=== PATIENT | female | born 2000 | race African-American/Black ===

== ENCOUNTER 2021-01-23 08:38 | Emergency (ER) | payer SELFPAY ==
--- NOTE | ~2021-01-23 | XR_ITS ---
EXAMINATION: XR chest 2V DATE: 01/23/2021 09:28 INDICATION: Left chest pain. TECHNIQUE: Frontal and lateral views of the chest were obtained. COMPARISON: None. FINDINGS: Sensitivity is decreased by obesity. The chest demonstrates clear lungs without pneumonia, pleural effusion, or pneumothorax. The heart size is normal. Surgical clips in the right upper quadra nt are likely from cholecystectomy. IMPRESSION: 1. No acute cardiopulmonary disease. Reviewed, dictated and finalized at location B.
[2021-01-23 08:54] VITALS: BP 139/81; PULSE 72; RESP 16; TEMP 36.3; O2SAT 100
--- NOTE | 2021-01-23 08:59 | ED.GENADULT ---
HPI - General Adult General Chief complaint: Chest Pain <Tracie Eden PA-C - Last Filed: 01/23/21 10:11> Stated complaint: chest pain <Tracie Eden PA-C - Last Filed: 01/23/21 10:11> Time Seen by Provider: 01/23/21 08:56 <Tracie Eden PA-C - Last Filed: 01/23/21 10:11> Source: patient <Tracie Eden PA-C - Last Filed: 01/23/21 10:11> Mode of arrival: ambulatory <Tracie Eden PA-C - Last Filed: 01/23/21 10:11> Limitations: no limitations <Tracie Eden PA-C - Last Filed: 01/23/21 10:11> History of Present Illness HPI narrative: Patient is here for evaluation of left-sided chest pain that started last evening when she was getting ready to go to work. 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 The pain is a little better this morning, does not seem to be increased or decreased by anything in particular. She denies any recent illness, no history of heart disease in the family or herself, she does have a history of acid reflux. <Tracie Eden PA-C - Last Filed: 01/23/21 10:11> Onset (ago): hour(s) <Tracie Eden PA-C - Last Filed: 01/23/21 10:11> Quality: aching <Tracie Eden PA-C - Last Filed: 01/23/21 10:11> Pain Consistency: intermittent <PAZ Sultana Last Filed: 01/23/21 10:11> Relieving factors: none <PAZ Sultana Last Filed: 01/23/21 10:11> Exacerbating factors: movement <PAZ Sultana Last Filed: 01/23/21 10:11> Associated symptoms: denies other symptoms <Tracie Eden PA-C - Last Filed: 01/23/21 10:11> Treatments prior to arrival: none <Tracie Eden PA-C Last Filed: 01/23/21 10:11> Related Data Allergies/adverse reactions: Allergies Allergy/AdvReac Type Severity Reaction Status Date / Time No Known Allergies Allergy Verified 01/23/21 09:35 <Tracie Eden PA-C Last Filed: 01/23/21 10:11> Review of Systems Review of Systems: All systems reviewed & are unremarkable except as noted in HPI and below <PAZ Sultana Last Filed: 01/23/21 10:11> Exam Const: General: no acute distress and alert <Tracie Eden PA-C Last Filed: 01/23/21 10:11> Orientation/consciousness: patient oriented x3 <Tracie Eden PA-C Last Filed: 01/23/21 10:11> Eyes: Pupils: Equal, round and reactive pupils present <Tracie Eden PA-C Last Filed: 01/23/21 10:11> Chest: Chest palpation & inspection: normal inspection of the chest and tenderness pectoral muscle and costochondral junction (on left) <Tracie Eden PA-C Last Filed: 01/23/21 10:11> Resp: Effort & Inspection: normal respiratory effort <Tracie Eden PA-C Last Filed: 01/23/21 10:11> Auscultation: clear to auscultation bilaterally <Tracie Eden PA-C Last Filed: 01/23/21 10:11> Cardio: Rate: regular rate <PAZ Sultana Last Filed: 01/23/21 10:11> Rhythm: regular rhythm <Tracie Eden PA-C Last Filed: 01/23/21 10:11> GI: GI Palp: Yes Soft to palpation <PAZ Sultana Last Filed: 01/23/21 10:11> Skin: General skin exam: normal color <PAZ Sultana Last Filed: 01/23/21 10:11> Extrem: General: normal to inspection <Tracie Eden PA-C - Last Filed: 01/23/21 10:11> Psych: Mental Status: mental status grossly normal <PAZ Sultana Last Filed: 01/23/21 10:11> Course Course Emergency Course: Pain is reproducible and responsive to NSAIDs. Chest x-ray EKG are both normal. All lab results discussed with patient and her mother. Will discharge with ibuprofen for costochondritis. <Tracie Eden PA-C - Last Filed: 01/23/21 10:11> Vital Signs Vital signs: Vital Signs Temperature 97.3 F L 01/23/21 08:54 Pulse Rate 72 01/23/21 08:54 Respiratory Rate 16 01/23/21 08:54 Blood Pressure 139/81 01/23/21 08:54 Pulse Oximetry 100 01/23/21 08:54 Temperature 97.3 F
[2021-01-23 09:30] VITALS: PULSE 71
[2021-01-23 09:35] LABS: Basophils Percent Auto 0.3 % (0.2-1.2); Eosinophils Absolute Auto 0.1 K/mm3 (0-0.3); Eosinophils Percent Auto 0.5 % (0-4.4); Hematocrit 35.7 % (37.0-47.0); Hemoglobin 11.5 g/dL (12.0-15.0); Immature Granulocyte Absolute 0.04 K/mm3 (0.00-0.031); Immature Granulocyte Percent A 0.3 % (0-0.5); Lymphocytes Absolute Auto 2.73 K/mm3 (0.9-3.2); Lymphocytes Percent Auto 22.4 % (18.3-44.2); Mean Corpuscular HGB Conc 32.2 g/dl (32-36); Mean Corpuscular Hemoglobin 26.6 pg (26-34); Mean Corpuscular Volume 82.6 fl (80-100); Mean Platelet Volume 11.7 fl (7.4-10.4); Monocytes Absolute Auto 0.6 K/mm3 (0.1-0.6); Monocytes Percent Auto 5.1 % (2.6-8.5); Neutrophils Absolute Auto 8.7 K/mm3 (1.3-6.7); Neutrophils Percent Auto 71.4 % (45.5-73.1); Platelet Count Result 311 k/mm3 (150-375); Red Blood Count 4.32 M/mm3 (4.2-5.4); Red Cell Distribution Width 12.8 % (11.5-14.5); White Blood Count 12.2 K/mm3 (4.5-10.0)
[2021-01-23] MEDS: KETOROLAC 30 MG/ML VIAL (*BKC) IV PUSH (09:39)
[2021-01-23 09:45] LABS: Alanine Aminotransferase 13 U/L (4-35); Albumin Level 4.3 g/dL (3.5-5.1); Alkaline Phosphatase 83 U/L (38-126); Anion Gap 10 mmol/L (8-16); Aspartate Amino Transferase 22 U/L (14-36); Bilirubin,Total 0.6 mg/dL (0.2-1.3); Blood Urea Nitrogen 11 mg/dL (7-17); Calcium 9.3 mg/dL (8.4-10.2); Carbon Dioxide 24 mmol/L (22-30); Chloride 102 mmol/L (98-107); Estimated CRCL calculation 181 ml/min; Estimated Glomerular Filt Rate > 60; Glucose 87 mg/dL (65-110); Potassium 3.4 mmol/L (3.4-5.0); Sodium 136 mmol/L (137-145)
[2021-01-23 10:50] VITALS: BP 141/79; PULSE 72; RESP 18; O2SAT 100
--- NOTE | 2021-01-23 15:41 | ECG_ITS ---
Measurements Intervals [place] Rate: 71 P: 11 HI: 144 QRS: 26 QRSD: 101 T: 18 QT: 389 QTc: 425 Interpretive Statements SINUS RHYTHM BASELINE ARTIFACT- I, II, AVR, AVF, V3 NORMAL ECG Electronically Signed On 01-23-2021 15:52:29 CDT by Dale Ortega D.O.
== END 2021-01-23 10:50 | disposition home or self-care (01) ==
PROVIDERS: Physician Assistant; Emergency Provider General Practice
DX: M94.0 Chondrocostal junction syndrome [Tietze] (principal)
CPT/HCPCS: 36415; 71046; 80053; 85025; 93005; 96374; 99284; J1885

== ENCOUNTER 2021-10-05 16:12 | Emergency (ER) | payer OTHER, SELFPAY ==
[2021-10-05 16:24] VITALS: BP 129/71; PULSE 78; RESP 16; O2SAT 100
--- NOTE | 2021-10-05 17:18 | ED.GENADULT ---
HPI - General Adult General Chief complaint: Abdominal Pain Stated complaint: lilliam CASILLAS pain Time Seen by Provider: 10/05/21 16:52 History of Present Illness HPI narrative: Patient is a 21-year-old female with a history of cholecystitis status postcholecystectomy in 2016, who presents to the emergency department for evaluation of an intermittent headache for the past 3 days. Patient states the headache came on gradually while she was at work, and is present over her left neck and left christian region. She states it feels like a pressure . Headache has been intermittent, and is worse when she is at work. She does report a lot of stressors at work recently. She tried 3 aspirin 3 days ago with good relief of her headache. Denies syncope, visual changes, vomiting, fevers. She does have a history of similar headaches, but states these are coming on more frequently. She additionally reports some epigastric discomfort that she describes as a burning sensation, worse after meals. Reports intermittent nausea, but no vomiting. She has been taking a probiotic for the past month, which she states is making her stools harder , but she denies constipation, diarrhea, blood in her stools. Related Data Allergies Allergy/AdvReac Type Severity Reaction Status Date / Time No Known Allergies Allergy Verified 01/23/21 09:35 Review of Systems Review of Systems: Gen: Denies fevers or chills Eyes: Denies eye pain or visual change ENT: Denies congestion Respiratory: Denies shortness of breath or cough CV: Denies chest pain or palpitations GI: Reports abdominal pain and nausea. Denies emesis or diarrhea denies burning, urgency, frequency or hematuria Musculoskeletal: Denies back pain or muscle pain Neuro: Reports headache. Denies numbness, tingling, weakness or focal weakness Skin: Denies rash Except as documented, all other systems reviewed and negative All systems reviewed & are unremarkable except as noted in HPI and below Exam Narrative: APPEARANCE: Well appearing, no pain in distress, well-nourished. Head: normocephalic and atraumatic. EYES: PERRLA/EOMI, conjunctivae clear NOSE: No nasal drainage EARS: External ear normal in appearance THROAT: Oropharynx is clear. Mucous membranes are moist. NECK: Supple. No adenopathy, no masses. RESPIRATORY: Airway patent, respirations nonlabored. Clear to auscultation bilaterally, no rales, rhonchi, wheezing. CARDIOVASCULAR: Regular rate and rhythm without murmurs, rubs, or gallops. ABDOMINAL: Normoactive bowel sounds. Soft, nontender, nondistended. No rebound tenderness or guarding. MUSCULOSKELETAL: Extremities are warm and well-perfused. Moves all extremities well. No edema. NEURO: Normal speech. No focal neurologic deficits. SKIN: Skin is warm and dry. No rashes. PSYCHIATRIC: Normal affect/mood. Course Vital Signs Vital signs: Vital Signs Pulse Rate 78 10/05/21 16:24 Respiratory Rate 16 10/05/21 16:24 Blood Pressure 129/71 10/05/21 16:24 Pulse Oximetry 100 10/05/21 16:24 Pulse Rate 78 10/05/21 16:24 Respiratory Rate 16 10/05/21 16:24 Blood Pressure 129/71 10/05/21 16:24 Pulse Oximetry 100 10/05/21 16:24 Medical Decision Making MDM Narrative Medical decision making narrative: 18-year-old female here for evaluation of a headache and epigastric discomfort. Vital signs stable, no focal abdominal tenderness, no focal neurologic findings. This is likely a tension/stress type headache, as patient states its worse at work, is gradual in onset, and is not associated with any visual changes or neurologic symptoms. She has not tried any analgesia for this, so recommended Excedrin Migraine for her symptoms. Her epigastric discomfort is likely related to GERD, as it is worse after meals and is described as a burning sensation. She has no dysphagia or recent weight changes; states she felt better after Maalox in ED. Patient states she mostly came to the ED for work note, so
[2021-10-05] MEDS: MAG HYDROX/AL HYDROX/SIMETH 30 ML UDC PO (17:30)
== END 2021-10-05 17:41 | disposition home or self-care (01) ==
PROVIDERS: Emergency Provider Emergency Medicine
DX: R51.9 Headache, unspecified (principal); K21.9 Gastro-esophageal reflux disease without esophagitis
CPT/HCPCS: 99283; A9270

== ENCOUNTER 2021-10-15 00:48 | Emergency (ER) | payer OTHER, SELFPAY ==
[2021-10-15 01:13] VITALS: BP 140/89; PULSE 66; RESP 14; TEMP 36.6; O2SAT 100
--- NOTE | 2021-10-15 02:06 | PC.NURSE ---
Pt approached triage desk and states that she is going to go home and make an appointment with her PCP. Pt ambulated out of ED with steady gait, no obvious distress .
== END 2021-10-15 03:22 | disposition left against medical advice (07) ==
LOC: ANHED 02:49
DX: R22.1 Localized swelling, mass and lump, neck (principal)
CPT/HCPCS: 99199

== ENCOUNTER 2021-10-18 08:58 | Emergency (ER) | payer OTHER, SELFPAY ==
--- NOTE | ~2021-10-18 | CT_ITS ---
EXAMINATION: CT abdomen pelvis w con INDICATION: Abdominal pain TECHNIQUE: Computed tomographic images of the abdomen and pelvis were obtained after the administrati on of 100 cc of Omnipaque 300 intravenous contrast. The dose-length product (DLP) was 1486.82 mGy-cm. Automated exposure control and iterative reconstruction technique were employed. COMPARISON: None available FINDINGS: The lung bases are clear. The heart size is normal. The gallbladder is surgically absent. T he liver, spleen, pancreas, and adrenal glands are normal. No pathologically enlarged abdominal or pe lvic lymph nodes are identified. There is no free intraperitoneal gas or evidence of bowel obstructio n. There are umbilical and infraumbilical hernias containing fat. There is mild lumbar spondylosis. IMPRESSION: 1. No CT correlate for the patient's symptoms. 2. Fat-containing umbilical and infraumbilical hernias. Reviewed, dictated and finalized at location A.
[2021-10-18 08:58] VITALS: BP 127/67; PULSE 75; RESP 18; TEMP 36.2; O2SAT 99
--- NOTE | 2021-10-18 09:08 | PC.NURSE ---
PCT attempted blood x 1 . Given urine cup for specimen.
--- NOTE | 2021-10-18 09:19 | ED.ABDPAIN ---
HPI - Abdominal Pain General Chief Complaint: Abdominal Pain Stated Complaint: stomach pain Time Seen by Provider: 10/18/21 09:04 History of Present Illness HPI narrative: Patient states she developed diffuse abdominal pain yesterday accompanied with multiple episodes of nonbloody diarrhea. Patient has a history of GERD, and is 6 years status post cholecystectomy. Patient also reports bilateral hip pain that began this morning. Patient denies any alleviating factors. States pain is worse with palpation and with ambulation. Patient denies fever, nausea or vomiting. Denies dysuria, denies vaginal discharge. Related Data Allergies Allergy/AdvReac Type Severity Reaction Status Date / Time No Known Allergies Allergy Verified 10/18/21 09:19 Review of Systems Review of Systems: CONSTITUTIONAL: Denies fever, chills, or sweats. EYES: Denies visual changes, redness, or discharge. ENT: Denies rhinorrhea, congestion, sore throat, or otalgia. CARDIOVASCULAR: Denies chest pain, palpitations, or edema. RESPIRATORY: Denies cough or dyspnea. GASTROINTESTINAL: Reports abdominal pain, diarrhea GENITOURINARY: Denies dysuria or hematuria. SKIN: Denies rash or itching. MUSCULOSKELETAL: Denies back pain, joint pain, or myalgia. NEUROLOGIC: Denies headache, numbness, dizziness, or weakness. PSYCHIATRIC: Denies anxiety or depression. Exam Narrative: GENERAL: Well-appearing, well-nourished, and in no acute distress. HEAD: Normocephalic, atraumatic. EYES: PERRLA and EOMI. CHEST: Clear to auscultation. No respiratory distress. No wheezes rales or rhonchi HEART: Regular rate and rhythm. No murmur heard. Normal peripheral pulses. ABDOMEN: Soft, nondistended, diffusely tender, normal bowel sounds x4, no guarding, negative heel strike, no psoas or obturator signs EXTREMITIES: Normal range of motion. No edema. SKIN: Warm, dry, no rash. NEURO: No focal deficits. Alert and oriented x3. PSYCH: Normal mood and affect. Course Vital Signs Vital signs: Vital Signs Temperature 36.2 C L 10/18/21 08:58 Pulse Rate 75 10/18/21 08:58 Respiratory Rate 18 10/18/21 08:58 Blood Pressure 127/67 10/18/21 08:58 Pulse Oximetry 99 10/18/21 08:58 Temperature 36.2 C L 10/18/21 08:58 Pulse Rate 75 10/18/21 08:58 Respiratory Rate 18 10/18/21 08:58 Blood Pressure 127/67 10/18/21 08:58 Pulse Oximetry 99 10/18/21 08:58 MDM - Abdominal Pain MDM Narrative Medical decision making narrative: 21-year-old female presents to the emergency room for evaluation of abdominal pain and diarrhea. CBC and CMP were unremarkable. CT scan showed no evidence of acute intra-abdominal abnormality. Patient responded well to a liter of fluid and IM Bentyl. Patient's abdominal pain likely due to the diarrhea. Lab Data Result diagrams: 10/18/21 09:22 10/18/21 09:22 Labs: Lab Results 10/18/21 10/18/21 10/18/21 Range/Units 09: 09:22 09:47 WBC 9.4 (4.5-10.0) K/mm3 RBC 4.34 (4.2-5.4) M/mm3 Hgb 12.0 (12.0-15.0) g/dL Hct 37.6 (37.0-47.0) % MCV 86.6 (80-100) fl MCH 27.6 (26-34) pg MCHC 31.9 L (32-36) g/dl RDW 13.0 (11.5-14.5) % Plt Count 261 (150-375) k/mm3 MPV 11.8 H (7.4-10.4) fl Immature Gran % (Auto) 0.2 (0-0.5) % Neut % (Auto) 63.6 (45.5-73.1) % Lymph % (Auto) 28.6 (18.3-44.2) % [facility] % (Auto) 6.0 (2.6-8.5) % Eos % (Auto) 1.2 (0-4.4) % Baso % (Auto) 0.4 (0.2-1.2) % Lymph # (Auto) 2.69 (0.9-3.2) K/mm3 [facility] # (Auto) 0.6 (0.1-0.6) K/mm3 Eos # (Auto) 0.1 (0-0.3) K/mm3 Baso # (Auto) 0.0 (0.0-0.1) K/mm3 Abs Immat Gran (auto) 0.02 (0.00-0.031) K/mm3 Absolute Neuts (auto) 6.0 (1.3-6.7) K/mm3 Absolute Nucleated RBC 0.0 (0.0-0.012) K/mm3 Nucleated RBC % 0.0 (0.0-0.2) % Sodium 138 (137-145) mmol/L Potassium 3.9 (3.4-5.0) mmol/L Chloride 108 H (98-107) mmol/L Carbon Dioxide 23 (22-30) mmol/
[2021-10-18 09:26] LABS: Basophils Percent Auto 0.4 % (0.2-1.2); Eosinophils Absolute Auto 0.1 K/mm3 (0-0.3); Eosinophils Percent Auto 1.2 % (0-4.4); Hematocrit 37.6 % (37.0-47.0); Immature Granulocyte Absolute 0.02 K/mm3 (0.00-0.031); Immature Granulocyte Percent A 0.2 % (0-0.5); Lymphocytes Absolute Auto 2.69 K/mm3 (0.9-3.2); Lymphocytes Percent Auto 28.6 % (18.3-44.2); Mean Corpuscular HGB Conc 31.9 g/dl (32-36); Mean Corpuscular Hemoglobin 27.6 pg (26-34); Mean Corpuscular Volume 86.6 fl (80-100); Mean Platelet Volume 11.8 fl (7.4-10.4); Monocytes Absolute Auto 0.6 K/mm3 (0.1-0.6); Neutrophils Percent Auto 63.6 % (45.5-73.1); Platelet Count Result 261 k/mm3 (150-375); Red Blood Count 4.34 M/mm3 (4.2-5.4); White Blood Count 9.4 K/mm3 (4.5-10.0)
[2021-10-18 09:46] LABS: Alanine Aminotransferase 14 U/L (6-35); Albumin Level 4.1 g/dL (3.5-5.1); Alkaline Phosphatase 68 U/L (38-126); Anion Gap 7 mmol/L (8-16); Aspartate Amino Transferase 26 U/L (14-36); Bilirubin,Total 0.6 mg/dL (0.2-1.3); Blood Urea Nitrogen 12 mg/dL (7-17); Calcium 8.6 mg/dL (8.4-10.2); Carbon Dioxide 23 mmol/L (22-30); Chloride 108 mmol/L (98-107); Estimated CRCL calculation 149 ml/min; Estimated Glomerular Filt Rate > 60; Glucose 94 mg/dL (65-110); Lipase 39 U/L (23-300); Potassium 3.9 mmol/L (3.4-5.0); Sodium 138 mmol/L (137-145)
[2021-10-18] MEDS: SODIUM CHLORIDE 0.9% IV 1,000 ML 999 ML IV CONT (09:47)
[2021-10-18] MEDS: DICYCLOMINE HCL INJ 20 MG/2 ML VIAL IM (09:47)
[2021-10-18 10:03] LABS: Add Urine Microscopic? YES; Appearance Urine Clear (Clear); Bilirubin Urine 1+ (Negative); Blood Urine Negative (Negative); Color Urine Yellow (Yellow); Glucose Urine UA Negative (Negative); Ketones Urine Negative (Negative); Leukocyte Esterase Ur Negative LEU/UL (Negative); Nitrate Urine Negative (Negative); Protein Urine Negative (Negative); Specific Grav Ur >= 1.030 (1.001-1.035); Urobilinogen Urine 0.2 mg/dL (<2.0)
[2021-10-18 10:12] LABS: Mucus Urine Rare /lpf; Squamous Epithelial Cell Urine Occasional /hpf (Few); WBC Urine 0-3 /hpf
[2021-10-18 11:05] VITALS: BP 129/70; PULSE 70; RESP 18; O2SAT 100
== END 2021-10-18 11:06 | disposition home or self-care (01) ==
PROVIDERS: Emergency Medicine; Emergency Provider Nurse Practitioner Family
DX: R19.7 Diarrhea, unspecified (principal); R10.84 Generalized abdominal pain; K21.9 Gastro-esophageal reflux disease without esophagitis; K42.9 Umbilical hernia without obstruction or gangrene
CPT/HCPCS: 36415; 74177; 80053; 81001; 81025; 83690; 85025; 96360; 96372; 99284; J0500; J7030; Q9967

== ENCOUNTER 2022-06-29 10:58 | Emergency (ER) | payer OTHER, SELFPAY ==
[2022-06-29 11:06] VITALS: BP 131/79; PULSE 109; RESP 15; TEMP 37.6; O2SAT 97
[2022-06-29 11:51] LABS: Strep Group A RT-PCR DETECTED (Negative)
[2022-06-29 12:04] LABS: Influenza A QL RT-PCR Negative (Negative); Influenza B QL RT-PCR Negative (Negative); SARS-CoV-2 RNA PCR Negative
--- NOTE | 2022-06-29 12:39 | ED.URI ---
HPI - URI/Sore Throat General Chief Complaint: Upper Respiratory Infection Stated Complaint: swollen throat, licona, nose stuffed up Time Seen by Provider: 06/29/22 11:33 Source: patient and RN notes reviewed Mode of arrival: ambulatory Limitations: no limitations History of Present Illness HPI Narrative: This is a 22-year-old female that presents emergency department for sore throat ongoing since yesterday. Associated with fevers, nausea, and congestion. 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 Denies cough. Related Data Allergies Allergy/AdvReac Type Severity Reaction Status Date / Time No Known Allergies Allergy Verified 10/18/21 09:19 Review of Systems Review of Systems: CONSTITUTIONAL: Denies fever ENT: Reports rhinorrhea, congestion, sore throat RESPIRATORY: Denies cough or dyspnea. All systems reviewed & are unremarkable except as noted in HPI and below PMFSH Past Medical History Medical History (Updated 06/29/22 @ 12:51 by Radha Campoverde PA-C) No active medical problems Social History Social History (Updated 06/29/22 @ 12:39 by Radha Campoverde PA-C) Smoking status: Never smoker Substance use: current Substance use type: marijuana Exam Narrative: GENERAL: Well-appearing, well-nourished, and in no acute distress. HEAD: Normocephalic, atraumatic. EYES: EOMI. ENT: Nares clear, no rhinorrhea or epistaxis. Mucous membranes moist. Oropharynx with symmetric tonsillar hypertrophy and exudate, or other lesions. Uvula is midline. No trismus. Bilateral TMs pearly bauer non-bulging NECK: Supple. No adenopathy or masses. CHEST: Clear to auscultation. No respiratory distress. No wheezes rales or rhonchi HEART: Regular rate and rhythm. No murmur heard. Normal peripheral pulses. EXTREMITIES: Normal range of motion. No edema. SKIN: Warm, dry, no rash. NEURO: No focal deficits. Alert and oriented x3. PSYCH: Normal mood and affect Course Vital Signs Vital signs: Vital Signs Temperature 99.7 F H 06/29/22 11:06 Pulse Rate 109 H 06/29/22 11:06 Respiratory Rate 15 06/29/22 11:06 Blood Pressure 131/79 06/29/22 11:06 Pulse Oximetry 97 06/29/22 11:06 Oxygen Delivery Room Air 06/29/22 11:06 Temperature 99.7 F H 06/29/22 11:06 Pulse Rate 109 H 06/29/22 11:06 Respiratory Rate 15 06/29/22 11:06 Blood Pressure 131/79 06/29/22 11:06 Pulse Oximetry 97 06/29/22 11:06 Oxygen Delivery Room Air 06/29/22 11:06 MDM - URI/Sore Throat MDM Narrative Medical decision making narrative: Patient presents to the emergency department for sore throat ongoing since yesterday. Mildly tachycardic, borderline febrile in the ED. Given dose of Tylenol. Her lungs are clear on exam. No evidence for peritonsillar abscess at this time. She is strep positive. Influenza and COVID-negative. Patient will be started on oral antibiotics and was instructed to follow-up with her primary provider. She was given warnings to return to the ER Differential Diagnosis Differential diagnosis: Likely upper respiratory infection, viral infection, influenza, pharyngitis and other (strep) Lab Data Attestation: I reviewed the patient's lab results. Labs: Lab Results 06/29/22 06/29/22 Range/Units 11:23 11:23 Influenza A (RT-PCR) Negative (Negative) Influenza B (RT-PCR) Negative (Negative) SARS-CoV-2 RNA (RT-PCR) Negative Group A Strep (PCR) Detected A (Negative) Critical Care Time Critical Care Time Critical Care Time: No Discharge Plan Discharge Clinical Impression: Acute streptococcal pharyngitis Patient Disposition: Home, Self-Care Condition: Stable Instructions: Antibiotic Form, Strep Throat (ED) Additional Instructions: Return to the emergency department for worsening symptoms, or any other concerns Remain well-hydrated, get plenty of rest, no work or school for several days. Take Tylenol or Motrin [id number] for pain
[2022-06-29] MEDS: ACETAMINOPHEN 500 MG TABLET 1000 MG PO (13:20)
[2022-06-29] MEDS: AMOXICILLIN/CLAVULANATE K 875-125 MG TAB 1 TABLET PO (13:20)
[2022-06-29 13:35] VITALS: BP 126/78; PULSE 78; RESP 16; O2SAT 98
== END 2022-06-29 13:38 | disposition home or self-care (01) ==
PROVIDERS: Emergency Medicine; Emergency Provider Physician Assistant
DX: J02.0 Streptococcal pharyngitis (principal); Z20.822 Contact with and (suspected) exposure to COVID-19
CPT/HCPCS: 87636; 87651; 96372; 99283; A9270; J1100

== ENCOUNTER 2023-10-30 21:59 | Emergency (ER) | payer OTHER, SELFPAY ==
--- NOTE | ~2023-10-30 | XR_ITS ---
EXAMINATION: XR chest 2V DATE: 10/30/2023 22:21 INDICATION: Shortness of breath and left-sided predominant chest pain TECHNIQUE: PA and lateral views of the chest were obtained. COMPARISON: Chest radiograph dated 01/23/2021 FINDINGS: The lungs remain clear with no focal airspace opacities, pulmonary edema, pleural effusion or pneumot horax. The cardiomediastinal silhouette is normal. Visualized bones and soft tissues are unremarkable . IMPRESSION: 1. No acute cardiopulmonary disease. Reviewed, dictated and finalized at location A.
--- NOTE | 2023-10-30 22:00 | ECG_ITS ---
SEE SCANNED COPY FOR CONFIRMED REPORT MTDD
--- NOTE | 2023-10-30 22:07 | PC.NURSE ---
VORB to not draw blood at this time. VORB to get chest xray., EKG and asa.
[2023-10-30] MEDS: ASPIRIN 81 MG CHEWABLE TABLET 324 MG PO (22:09)
[2023-10-30 22:10] VITALS: BP 145/80; PULSE 92; RESP 17; TEMP 36.8; O2SAT 99
--- NOTE | 2023-10-30 23:29 | PC.NURSE ---
ERP seeing patient in triage.
[2023-10-30 23:35] VITALS: O2SAT 99
--- NOTE | 2023-10-30 23:59 | ED.CHESTPAIN ---
HPI - Chest Pain General Chief Complaint: Chest Pain Stated Complaint: chest pain Time Seen by Provider: 10/30/23 23:28 History of Present Illness HPI narrative: Patient presenting with chest pain, she does have occasional episodes of chest pain that resolves, however tonight it was more persistent so came in. She has also been having some nasal congestion and mild cough for the last few days. 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 Related Data Allergies Allergy/AdvReac Type Severity Reaction Status Date / Time No Known Allergies Allergy Verified 10/30/23 22:13 Review of Systems Review of Systems: All systems reviewed & are unremarkable except as noted in HPI and below PMFSH Past Medical History Medical History (Updated 10/31/23 @ 00:00 by Kesha Torres) No active medical problems Social History Social History (Updated 06/29/22 @ 12:39 by Radha Campoverde PA-C) Smoking status: Never smoker Substance use: current Substance use type: marijuana Exam Narrative: EXAMINATION OF ORGAN SYSTEMS/BODY AREAS: Constitutional: Vital signs per nursing GENERAL:[No acute distress, non-toxic appearing.] HEAD: Normal with no signs of head trauma. EYES: EOMI, conjunctiva normal ENT: Hearing grossly intact LUNGS: Nonlabored breathing. Clear to auscultation bilaterally HEART: [Regular rate and rhythm] ABD: No distension EXT: Normal range of motion, no lower extremity swelling or pain SKIN: [No rashes or lesions.] NEURO: [Alert and oriented x 3. No gross focal sensory or strength deficits.] PSYCH: Normal affect Course Vital Signs Vital signs: Vital Signs Temperature 98.2 F 10/30/23 22:10 Pulse Rate 92 10/30/23 22:10 Respiratory Rate 17 10/30/23 22:10 Blood Pressure 145/80 H 10/30/23 22:10 Pulse Oximetry 99 10/30/23 22:10 Oxygen Delivery Room Air 10/30/23 22:10 Temperature 98.2 F 10/30/23 22:10 Pulse Rate 92 10/30/23 22:10 Respiratory Rate 17 10/30/23 22:10 Blood Pressure 145/80 H 10/30/23 22:10 Pulse Oximetry 99 10/30/23 23:35 Oxygen Delivery Room Air 10/30/23 23:35 MDM - Chest Pain MDM Narrative Medical decision making narrative: ED COURSE AND MEDICAL DECISION MAKIN-year-old female with no significant medical history or family history of cardiac dz presenting with chest pain. EKG done in triage negative for acute ischemic changes. Cardiac workup is initiated. EKG: Performed in triage and interpreted by me. Normal sinus rhythm. Rate 86. Normal axis. [place] normal. QRS duration normal. QTc normal. No pathologic Q waves. No ST segment elevation or depression to suggest acute ischemia. No RV strain pattern. No risk factors or acute ischemic changes on EKG making ACS unlikely. Negative PERC making PE unlikely. Presentation not consistent with dissection or aneurysm without radiation of pain or pulse deficits. CXR negative for mediastinal widening. No cardiomegaly or JVD to suggest pericardial effusion/tamponade. On repeat evaluation just prior to discharge, the patient is no acute distress. I had a long discussion with the patient and with shared decision making, she is comfortable with outpatient management. She was given clear return instructions by myself in person as well as on discharge paperwork. Procedures: Pulse oximetry interpretation - not hypoxic. EKG interpretation. Review of medical records. Discharge Plan Discharge Clinical Impression: Atypical chest pain Patient Disposition: Home, Self-Care Condition: Stable Instructions: Antibiotic Form, Chest Pain (ED) Additional Instructions: Please follow-up with your doctor, you can take ibuprofen and Tylenol as needed for pain, and come back to the hospital if you feel worse. Prescriptions: New acetaminophen [Tylenol Extra Strength] 500 mg tablet 1,000 mg PO Q6H PRN (Reason: pain) Qty: 50 0RF ibuprofen 600 mg tablet 600 mg PO TID PRN (Reason:
== END 2023-10-30 23:44 | disposition home or self-care (01) ==
LOC: ANHED 23:38
PROVIDERS: Emergency Provider Emergency Medicine; PCP Family Medicine
DX: R07.89 Other chest pain (principal)
CPT/HCPCS: 71046; 93005; 99283; A9270

== ENCOUNTER 2024-11-25 23:37 | Emergency (ER) | payer OTHER, SELFPAY ==
--- NOTE | ~2024-11-25 | XR_ITS ---
EXAMINATION: XR wrist RT min 3V, XR hand RT min 3V DATE: 11/26/2024 01:34 INDICATION: Right hand and wrist pain post fall TECHNIQUE: 1. Posteroanterior, oblique and lateral views of the right wrist were obtained. 2. Dorsal palmar, oblique and lateral views of the right hand were obtained. COMPARISON: None. FINDINGS: Alignment of the right hand and wrist is normal. No fracture identified. Joint spaces are normal. No focal soft tissue swelling. IMPRESSION: 1. Negative right hand and wrist radiographs. Reviewed, dictated and finalized at location A. IMPRESSION: 1. Negative right hand and wrist radiographs.
--- NOTE | ~2024-11-25 | XR_ITS ---
EXAMINATION: XR hip LT 2V w AP pelvis DATE: 11/26/2024 01:34 INDICATION: Left hip pain post fall TECHNIQUE: Anteroposterior view of the pelvis and anteroposterior and frog-leg lateral views of the a ffected hip were obtained. COMPARISON: None. FINDINGS: Alignment is normal. No fracture or suspected osteonecrosis. Bilateral hip and sacroiliac joint space s are normal. Small phlebolith in the right hemipelvis. Soft tissues are unremarkable. IMPRESSION: 1. No osseous abnormality. Reviewed, dictated and finalized at location A. IMPRESSION: 1. No osseous abnormality.
--- NOTE | ~2024-11-25 | XR_ITS ---
EXAMINATION: XR lumbar spine 2-3V DATE: 11/26/2024 01:34 INDICATION: Low back pain post fall TECHNIQUE: Anteroposterior and lateral views of the lumbar spine, and cone-down lateral view of the l umbosacral junction were obtained. COMPARISON: None. FINDINGS: Alignment is normal. Vertebral body and disc heights are normal. Sacral arches are intact. Bilateral hip and sacroiliac joint spaces are normal. Cholecystectomy clips in the right upper quadrant. IMPRESSION: 1. Negative lumbar spine radiographs. Reviewed, dictated and finalized at location A.
--- NOTE | ~2024-11-25 | XR_ITS ---
EXAMINATION: XR elbow RT min 3V DATE: 11/26/2024 01:34 INDICATION: Right elbow pain post fall TECHNIQUE: Anteroposterior, two oblique and lateral views of the right elbow were obtained. COMPARISON: None. FINDINGS: Alignment is normal. No fracture or joint effusion. Joint spaces are normal. Soft tissues are unremar kable. IMPRESSION: 1. Negative right wrist radiographs. Reviewed, dictated and finalized at location A.
[2024-11-25 23:40] VITALS: BP 150/91; PULSE 93; RESP 18; TEMP 36.5; O2SAT 98
[2024-11-26 01:01] VITALS: BP 120/58; PULSE 81; RESP 16; O2SAT 100
--- NOTE | 2024-11-26 01:50 | ED_ITS ---
HPI - General Adult General Chief complaint: Fall Stated complaint: fall, right wrist pain Time Seen by Provider: 11/26/24 01:08 History of Present Illness HPI narrative: Patient is a 24-year-old female who presents emergency department with chief complaint of right upper extremity pain and left hip pain. Patient reports that she was at work slipped and fell reports that she has pain her left hip in her lumbar spine and has in her right wrist and and right elbow patient reports no l oss of consciousness reports pain is worse with movement and improved with rest patient reports she has noticed some bruising present on her hand and reports no lacerations. Related Data Allergies Allergy/AdvReac Type Severity Reaction Status Date / Time No Known Allergies Allergy Verified 11/25/24 23:42 Review of Systems Review of Systems: A 10 system review of systems was completed on the patient and is negative except for what is stated in the HPI. Nursing and ancillary documentation was reviewed. [facility] Past Medical History Medical History No active medical problems Social History Social History Smoking status: Never smoker Substance use: current Substance use type: marijuana Exam Narrative: GENERAL: Well-appearing, well-nourished, and in no acute distress. HEAD: Normocephalic, atraumatic. EYES: PERRLA and EOMI. ENT: Nares clear, no rhinorrhea or epistaxis. Mucous membranes moist. NECK: Supple. CHEST: Clear to auscultation. No respiratory distress. HEART: Regular rate and rhythm. No murmur heard. Normal peripheral pulses. ABDOMEN: Soft, nontender, nondistended, normal active bowel sounds. EXTREMITIES: Normal range of motion tenderness to palpation in the right wrist there is bruising present on the volar aspect of the right wrist there is tenderness to palpation the right elbow there is tenderness to palpation left hip there is tenderness to palpation in the lumbar region. No edema. SKIN: Warm, dry, no rash. NEURO: No focal deficits. Alert and oriented x3. PSYCH: Normal mood and affect. Course Vital Signs Vital signs: Vital Signs Temperature 36.5 C 11/25/24 23:40 Pulse Rate 93 11/25/24 23:40 Respiratory Rate 18 11/25/24 23:40 Blood Pressure 150/91 H 11/25/24 23:40 Pulse Oximetry 98 11/25/24 23:40 Oxygen Delivery Room Air 11/25/24 23:40 Temperature 36.5 C 11/25/24 23:40 Pulse Rate 81 11/26/24 01:01 Respiratory Rate 16 11/26/24 01:01 Blood Pressure 120/58 L 11/26/24 01:01 Pulse Oximetry 100 11/26/24 01:01 Oxygen Delivery Room Air 11/25/24 23:40 Medical Decision Making MDM Narrative Medical decision making narrative: Differential diagnosis includes fracture, contusion Plain film x-rays were obtained of the wrist hand lumbar spine hip and elbow X-rays did not show any evidence of significant abnormality wrist and elbow film were secondarily reviewed by [facility] that showed no evidence of fracture. The patient will be placed in Samy wrap for the wrist and the patient should follow-up with her primary care provider Vital Signs Vital Signs: Vital Signs Temperature 36.5 C 11/25/24 23:40 Pulse Rate 93 11/25/24 23:40 Respiratory Rate 18 11/25/24 23:40 Blood Pressure 150/91 H 11/25/24 23:40 Pulse Oximetry 98 11/25/24 23:40 Oxygen Delivery Room Air 11/25/24 23:40 Temperature 36.5 C 11/25/24 23:40 Pulse Rate 81 11/26/24 01:01 Respiratory Rate 16 11/26/24 01:01 Blood Pressure 120/58 L 11/26/24 01:01 Pulse Oximetry 100 11/26/24 01:01 Oxygen Delivery Room Air 11/25/24 23:40 Discharge Plan Discharge Clinical Impression: Fall from ground level, Contusion of right wrist, Contusion of elbow, right, Contusion of hip, left, Lumbar strain Patient Disposition: Home Condition: Stable Instructions: Antibiotic Form, Wrist Injury (ED), Low Back Strain (ED), Contusion in Adults (ED) Patient Language: [place] Prescriptions: No Action dicyclomine 10 mg capsule 10 mg PO TID Qty: 14 0RF amoxicillin-pot clavulanate 875-125 mg tablet 1 tablet PO Q12H 10 Days Qty: 20 0RF acetaminophen [Tylenol Extra Strength] 500 mg tablet 1,000 mg PO Q6H PRN (Reason: pain) Qty: 50 0RF ibuprofen 600 mg tablet 600 mg PO TID PRN (Reason: fever or pain) Qty: 30 0RF fluticasone propionate [Allergy Relief (fluticasone)] 50 mcg/actuation spray,suspension 1 spray intranasal DAILY Qty: 16 0RF Rx Instructions: administer into each nostril loratadine 10 mg tablet 10 mg PO DAILY Qty: 30 0RF Follow-up/Referrals: Jaida,Joseph Patel MD [Primary Care Provider] - Time of Disposition: 02:12
== END 2024-11-26 03:00 | disposition home or self-care (01) ==
PROVIDERS: Emergency Provider Emergency Medicine; PCP Family Medicine
DX: S60.211A Contusion of right wrist, initial encounter (principal); S50.01XA Contusion of right elbow, initial encounter; S70.02XA Contusion of left hip, initial encounter; S39.012A Strain of muscle, fascia and tendon of lower back, initial encounter; W18.30XA Fall on same level, unspecified, initial encounter
CPT/HCPCS: 72100; 73080; 73110; 73130; 73502; 99284